=== PATIENT | female | born 1950 | race African-American/Black ===

== ENCOUNTER 2018-09-20 13:05 | Outpatient (CLI) | payer MEDICARE ==
--- NOTE | 2018-09-20 13:58 | XRay Report ---
Right elbow 3 views: History: Pain. Findings: Suspected mild osteopenia. Mild arthritic changes at the elbow joint. No soft tissue calcification or joint effusion. Impression: Mild arthritic changes elbow joint.
== END 2018-09-20 13:06 | disposition home or self-care (01) ==
LOC: SPVIMAG 13:05
PROVIDERS: ATTEND Family Medicine Adult Medicine
DX: M19.021 Primary osteoarthritis, right elbow (principal)